=== PATIENT | female | born 1990 | race Caucasian/White ===

== ENCOUNTER 2018-10-23 16:07 | Emergency (ER) | payer OTHER ==
[~2018-10-23] VITALS: Ht 170.2 cm; Wt 98.4 kg
[~2018-10-23 16:07] MED LIST: NOHOMEMEDICATIONS; NORCO 5-325 TA1 EACH PO
[2018-10-23] MEDS ORDERED: GABAPENTIN 100100 MG PO (16:26)
[2018-10-23] MEDS ORDERED: MEDROLDOSEPACK PO (16:26)
[2018-10-23 17:24] LABS: ABSOLUTE NEUTROPHILS 9.3 thou/uL (1.4-8.2); BASOPHILS 0.4 % (0.0-2.0); EOSINOPHILS 0.8 % (0.0-3.0); HEMATOCRIT 45.3 % (37.0-47.0); HEMOGLOBIN 15.3 gm/dL (12.0-15.0); LYMPHOCYTES 19.5 % (24.0-44.0); MCH 28.1 pg (26.0-34.0); MCHC 33.8 g/dL (28.0-37.0); MCV 83.1 fL (80.0-100.0); MONOCYTES 5.6 % (1.0-8.0); PLATELET COUNT 360 thou/uL (150-400); POLYS 73.7 % (36.0-66.0); RBC 5.46 mil/uL (4.20-5.00); WBC 12.6 thou/uL (4.0-11.0)
[2018-10-23 17:32] LABS: CALCIUM 9.3 mg/dL (8.5-10.1); CREATININE 0.8 mg/dL (0.6-1.0)
[2018-10-23 17:36] LABS: ALBUMIN 3.7 g/dL (3.4-5.0); TOTAL BILIRUBIN 0.6 mg/dL (<0.1-1.0); TOTAL PROTEIN 8.1 g/dL (6.4-8.2)
[2018-10-23 17:52] LABS: URINE BILIRUBIN NEGATIVE (Negative); URINE BLOOD NEGATIVE (Negative); URINE CLARITY CLEAR; URINE COLOR YELLOW; URINE GLUCOSE-RANDOM* NEGATIVE (Negative); URINE KETONES NEGATIVE (Negative); URINE LEUKOCYTES-REFLEX TRACE (Negative); URINE NITRITE-REFLEX NEGATIVE (Negative); URINE PROTEIN (DIPSTICK) NEGATIVE (Negative); URINE SPECIFIC GRAVITY 1.025 (1.005-1.035); URINE UROBILINOGEN 0.2 E.U./dl (0.2-1.0)
[2018-10-23 18:58] VITALS: BP 130/82
[2018-10-23] MEDS ORDERED: ONDANSETRON HCL4 M2 PO (18:59)
== END 2018-10-23 19:01 | disposition home or self-care (01) ==
LOC: ER 16:07
PROVIDERS: Physician Assistant
DX: R11.2 Nausea with vomiting, unspecified (principal); R10.33 Periumbilical pain; R10.31 Right lower quadrant pain

== ENCOUNTER 2019-03-10 18:39 | Emergency (ER) | payer BC ==
[~2019-03-10] VITALS: Ht 170.2 cm; Wt 103.4 kg
[~2019-03-10 18:39] MED LIST changes: +GABAPENTIN 100100 MG PO; +MEDROLDOSEPACK PO; +ONDANSETRON HCL4 M2 PO
[2019-03-10 19:57] LABS: URINE BILIRUBIN NEGATIVE (Negative); URINE BLOOD NEGATIVE (Negative); URINE CLARITY CLEAR; URINE COLOR YELLOW; URINE GLUCOSE-RANDOM* NEGATIVE (Negative); URINE KETONES NEGATIVE (Negative); URINE LEUKOCYTES-REFLEX TRACE (Negative); URINE NITRITE-REFLEX NEGATIVE (Negative); URINE PROTEIN (DIPSTICK) NEGATIVE (Negative); URINE SPECIFIC GRAVITY <= 1.005 (1.005-1.035); URINE UROBILINOGEN 0.2 E.U./dl (0.2-1.0)
[2019-03-10 20:29] LABS: ABSOLUTE NEUTROPHILS 7.7 thou/uL (1.4-8.2); BASOPHILS 0.8 % (0.0-2.0); EOSINOPHILS 1.7 % (0.0-3.0); HEMATOCRIT 41.9 % (37.0-47.0); HEMOGLOBIN 14.3 gm/dL (12.0-15.0); LYMPHOCYTES 25.3 % (24.0-44.0); MCH 28.3 pg (26.0-34.0); MCHC 34.1 g/dL (28.0-37.0); MONOCYTES 9.2 % (1.0-8.0); PLATELET COUNT 337 thou/uL (150-400); RBC 5.04 mil/uL (4.20-5.00); RDW 12.9 % (10.5-14.5); WBC 12.2 thou/uL (4.0-11.0)
[2019-03-10 20:37] LABS: CALCIUM 9.4 mg/dL (8.5-10.1); CREATININE 0.8 mg/dL (0.6-1.0); POTASSIUM 3.4 mmol/L (3.5-5.1)
[2019-03-10 20:43] LABS: ALBUMIN 3.6 g/dL (3.4-5.0); TOTAL BILIRUBIN 0.2 mg/dL (<0.1-1.0); TOTAL PROTEIN 8.1 g/dL (6.4-8.2)
[2019-03-10] MEDS ORDERED: CARAFATE 1 GM TA1 G1 PO ×2 (21:02→21:14)
[2019-03-10] MEDS ORDERED: ZOFRAN ODT4 MG PO ×2 (21:02→21:14)
[2019-03-10] MEDS ORDERED: PROTONIX40 M1 PO ×2 (21:02→21:14)
[2019-03-10] MEDS ORDERED: ULTRAM 50MG TAB50 MG PO ×2 (21:02→21:14)
[2019-03-10 22:05] VITALS: BP 117/94
== END 2019-03-10 22:00 | disposition home or self-care (01) ==
LOC: ER 18:39
PROVIDERS: Emergency Medicine
DX: K29.70 Gastritis, unspecified, without bleeding (principal); K21.9 Gastro-esophageal reflux disease without esophagitis; I10 Essential (primary) hypertension

== ENCOUNTER 2019-09-05 18:02 | Emergency (ER) | payer BC ==
[~2019-09-05] VITALS: Ht 170.2 cm; Wt 102.1 kg
[~2019-09-05 18:02] MED LIST changes: +CARAFATE 1 GM TA1 G1 PO; +PROTONIX40 M1 PO; +ULTRAM 50MG TAB50 MG PO; +ZOFRAN ODT4 MG PO
[2019-09-05] MEDS ORDERED: NORCO 5-325 TA1 EAC1 PO (20:51)
[2019-09-05 21:07] VITALS: BP 112/62
== END 2019-09-05 21:07 | disposition home or self-care (01) ==
LOC: ER 18:02
DX: S32.2XXA Fracture of coccyx, initial encounter for closed fracture (principal); W00.2XXA Other fall from one level to another due to ice and snow, initial encounter; Y93.29 Activity, other involving ice and snow; Y92.89 Other specified places as the place of occurrence of the external cause; Y99.8 Other external cause status

== ENCOUNTER → 2019-09-11 | Outpatient (CLI) | payer BC ==
[~2019-09-11] MED LIST changes: +NORCO 5-325 TA1 EAC1 PO
== END ==
LOC: CAT 10:54
DX: S09.90XA Unspecified injury of head, initial encounter (principal); S13.4XXA Sprain of ligaments of cervical spine, initial encounter; J34.89 Other specified disorders of nose and nasal sinuses; X58.XXXA Exposure to other specified factors, initial encounter; Y93.89 Activity, other specified; Y92.89 Other specified places as the place of occurrence of the external cause; Y99.8 Other external cause status

== ENCOUNTER 2019-12-15 22:32 | Emergency (ER) | payer BC ==
[~2019-12-15] VITALS: Ht 170.2 cm; Wt 104.3 kg
[2019-12-15 23:39] VITALS: BP 142/82
== END 2019-12-15 23:50 | disposition home or self-care (01) ==
LOC: ER 22:32
DX: S20.111A Abrasion of breast, right breast, initial encounter (principal); R07.89 Other chest pain; M54.2 Cervicalgia; R51 Headache; R10.9 Unspecified abdominal pain; Z98.86 Personal history of breast implant removal; V89.2XXA Person injured in unspecified motor-vehicle accident, traffic, initial encounter; Y93.89 Activity, other specified; Y92.89 Other specified places as the place of occurrence of the external cause; Y99.8 Other external cause status

== ENCOUNTER 2020-03-25 21:06 | Emergency (ER) | payer BC ==
[~2020-03-25] VITALS: Ht 170.2 cm; Wt 107.5 kg
[2020-03-25] MEDS ORDERED: PROTONIX40 M2 PO (21:36)
[2020-03-25 21:42] LABS: ABSOLUTE NEUTROPHILS 3.8 thou/uL (1.4-8.2); EOSINOPHILS 4.8 % (0.0-3.0); HEMATOCRIT 39.4 % (37.0-47.0); HEMOGLOBIN 13.3 gm/dL (12.0-15.0); LYMPHOCYTES 39.6 % (24.0-44.0); MCH 28.6 pg (26.0-34.0); MCHC 33.7 g/dL (28.0-37.0); MCV 84.8 fL (80.0-100.0); MONOCYTES 8.8 % (1.0-8.0); PLATELET COUNT 270 thou/uL (150-400); POLYS 45.8 % (36.0-66.0); RBC 4.65 mil/uL (4.20-5.00); WBC 8.3 thou/uL (4.0-11.0)
[2020-03-25 21:50] LABS: ANION GAP 9 mmol/L (7-16); BUN 9 mg/dL (7-18); CALCIUM 8.1 mg/dL (8.5-10.1); CHLORIDE 104 mmol/L (98-107); CO2 28 mmol/L (21-32); CREATININE 0.8 mg/dL (0.6-1.0); GLUCOSE 95 mg/dL (74-106); POTASSIUM 3.6 mmol/L (3.5-5.1); SODIUM 141 mmol/L (136-145)
[2020-03-25 22:01] LABS: ALBUMIN 3.5 g/dL (3.4-5.0); LIPASE 198 U/L (73-393); SGOT 31 U/L (15-37); SGPT 46 U/L (30-65); TOTAL BILIRUBIN 0.3 mg/dL (0.2-1.0); TOTAL PROTEIN 7.4 g/dL (6.4-8.2); TROPONIN-I <0.06 ng/mL (<0.06)
[2020-03-25] MEDS ORDERED: BUTALB-APAP-CA1 EACH PO (22:42)
[2020-03-25 22:46] VITALS: BP 111/59
--- NOTE | 2020-03-26 09:16 | EKG ---
[facility] [place] [address] ELECTROCARDIOGRAM REPORT Name: DARÍO BATISTA Room #: DEP [facility]#: [id number] Admission: 03/25/20 Attend Phys: Discharge: 03/25/20 Date of : [birth year] Report #: [id number] THIS REPORT FOR: cc: Vanessa Zhang MD, Nora P. 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
== END 2020-03-25 22:47 | disposition home or self-care (01) ==
LOC: ER 21:06
PROVIDERS: Emergency Medicine
DX: G43.909 Migraine, unspecified, not intractable, without status migrainosus (principal); Z79.899 Other long term (current) drug therapy; Z98.890 Other specified postprocedural states

== ENCOUNTER → 2020-04-08 | Outpatient (CLI) | payer OTHER ==
[~2020-04-08] MED LIST changes: +BUTALB-APAP-CA1 EACH PO; +PROTONIX40 M2 PO
== END ==
LOC: MRI 10:22
PROVIDERS: ATTEND Family Medicine
DX: R51 Headache (principal)

== ENCOUNTER 2021-02-10 23:02 | Emergency (ER) | payer BC ==
[~2021-02-10] VITALS: Ht 170.2 cm; Wt 104.3 kg
[2021-02-11 00:42] LABS: ANION GAP 12 mmol/L (7-16); BUN 10 mg/dL (7-18); CALCIUM 8.5 mg/dL (8.5-10.1); CHLORIDE 101 mmol/L (98-107); CO2 24 mmol/L (21-32); CREATININE 0.7 mg/dL (0.6-1.0); GLUCOSE 106 mg/dL (74-106); POTASSIUM 4.4 mmol/L (3.5-5.1); SODIUM 137 mmol/L (136-145)
[2021-02-11 00:56] LABS: ALBUMIN 3.1 g/dL (3.4-5.0); SGOT 42 U/L (15-37); SGPT 29 U/L (30-65); TOTAL BILIRUBIN 0.4 mg/dL (0.2-1.0); TOTAL PROTEIN 7.8 g/dL (6.4-8.2); TROPONIN-I <0.06 ng/mL (<0.06)
[2021-02-11 01:00] LABS: ABSOLUTE NEUTROPHILS 5.8 thou/uL (1.4-8.2); BASOPHILS 0.6 % (0.0-2.0); EOSINOPHILS 3.8 % (0.0-3.0); LYMPHOCYTES 30.3 % (24.0-44.0); MCH 28.7 pg (26.0-34.0); MCHC 34.3 g/dL (28.0-37.0); MCV 83.9 fL (80.0-100.0); MONOCYTES 8.8 % (1.0-8.0); PLATELET COUNT 315 thou/uL (150-400); POLYS 56.5 % (36.0-66.0); RBC 4.53 mil/uL (4.20-5.00); RDW 13.2 % (10.5-14.5); WBC 10.3 thou/uL (4.0-11.0)
[2021-02-11 04:19] VITALS: BP 130/71
--- NOTE | 2021-02-11 07:20 | EKG ---
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 : 1990 Requested By: Socrates Edwards Order Number: [id number] MD: Jori Grace Measurements Intervals [place] Rate: 72 P: 41 ME: 135 QRS: 67 QRSD: 83 T: 48 QT: 364 QTc: 399 Interpretive Statements Sinus rhythm Probable left atrial enlargement Baseline wander in lead(s) V6 Compared to ECG 03/25/2020 21:13:53 No significant changes Electronically Signed On 02-11-2021 7:20:33 CDT by Jori Grace [email or web address] <ELECTRONICALLY SIGNED> By: Jori Grace MD, [facility] 02/11/21 0720 7 06 Jori Grace MD, FACC /EPI
== END 2021-02-11 04:23 | disposition home or self-care (01) ==
LOC: ER 23:02
PROVIDERS: Emergency Medicine
DX: R07.89 Other chest pain (principal); E78.5 Hyperlipidemia, unspecified; Z98.890 Other specified postprocedural states

== ENCOUNTER → 2021-05-12 | Outpatient (CLI) | payer BC ==
[~2021-05-12] MED LIST changes: +EUTHYROX50 MCG PO
--- NOTE | 2021-05-12 10:43 | NUR ---
PT ARRIVED AT 9AM AND PREPPED FOR ESOPHAGEAL MANOMETRY. AFTER CONSENT OBTAINED, LIDOCAINE JELLY APPLIED TO RIGHT NARE AND HURRICAINE SPRAY X 1 TO THROAT. PT STATES HAS SLIDING HIATAL HERNIA, CHEST PAIN, GERD, DYSPHAGIA. ATTEMPTED TO TRAVERSE CATHETER X 2 DOWN RIGHT NARE; PT STARTED GAGGING AND VOMITING MID PLACEMENT EACH TIME, CATHETER WAS INSERTED FULLY EACH TIME BUT GAGGING AND VOMITING CONTINUED EVEN WHEN TRYING TO ADJUST CATHETER; PROCEDURE NOT SUSSTAINABLE FOR PT. PT DECIDED TO ABORT. INFORMED HER WE WILL ALERT DR SOLIS OFFICE. DR SOLIS OFFICE NOTIFIED PT UNABLE TO TOLERATE PROCEDURE.
== END | disposition home or self-care (01) ==
LOC: GI 05-10 14:19
PROVIDERS: ATTEND Internal Medicine Gastroenterology
DX: K21.9 Gastro-esophageal reflux disease without esophagitis (principal); Z53.8 Procedure and treatment not carried out for other reasons; R13.10 Dysphagia, unspecified; R07.9 Chest pain, unspecified; R11.2 Nausea with vomiting, unspecified

== ENCOUNTER 2021-05-20 14:09 | Emergency (ER) | payer BC ==
[~2021-05-20] VITALS: Ht 167.6 cm; Wt 100.7 kg
[2021-05-20 14:44] LABS: URINE BILIRUBIN NEGATIVE (Negative); URINE BLOOD TRACE (Negative); URINE CLARITY CLEAR; URINE COLOR YELLOW; URINE GLUCOSE-RANDOM* NEGATIVE (Negative); URINE KETONES NEGATIVE (Negative); URINE LEUKOCYTES-REFLEX NEGATIVE (Negative); URINE NITRITE-REFLEX NEGATIVE (Negative); URINE PROTEIN (DIPSTICK) NEGATIVE (Negative); URINE SPECIFIC GRAVITY >= 1.030 (1.005-1.035); URINE UROBILINOGEN 0.2 E.U./dl (0.2-1.0)
[2021-05-20 14:55] LABS: ABSOLUTE NEUTROPHILS 9.1 thou/uL (1.4-8.2); BASOPHILS 0.6 % (0.0-2.0); EOSINOPHILS 0.1 % (0.0-3.0); HEMATOCRIT 40.2 % (37.0-47.0); HEMOGLOBIN 13.4 gm/dL (12.0-15.0); LYMPHOCYTES 18.1 % (24.0-44.0); MCH 28.1 pg (26.0-34.0); MCHC 33.3 g/dL (28.0-37.0); MCV 84.3 fL (80.0-100.0); MONOCYTES 5.7 % (1.0-8.0); PLATELET COUNT 324 thou/uL (150-400); POLYS 75.5 % (36.0-66.0); RBC 4.76 mil/uL (4.20-5.00); RDW 13.1 % (10.5-14.5); WBC 12.1 thou/uL (4.0-11.0)
[2021-05-20 15:06] LABS: ANION GAP 9 mmol/L (7-16); BUN 13 mg/dL (7-18); CALCIUM 8.7 mg/dL (8.5-10.1); CHLORIDE 103 mmol/L (98-107); CO2 28 mmol/L (21-32); CREATININE 0.8 mg/dL (0.6-1.0); GLUCOSE 96 mg/dL (74-106); POTASSIUM 3.6 mmol/L (3.5-5.1); SODIUM 140 mmol/L (136-145)
[2021-05-20 15:15] LABS: ALBUMIN 3.6 g/dL (3.4-5.0); SGOT 14 U/L (15-37); SGPT 27 U/L (14-59); TOTAL BILIRUBIN 0.4 mg/dL (0.2-1.0); TOTAL PROTEIN 7.9 g/dL (6.4-8.2)
[2021-05-20 17:04] VITALS: BP 134/63
--- NOTE | 2021-05-21 12:58 | EKG ---
[place] [address] 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
== END 2021-05-20 17:20 | disposition home or self-care (01) ==
LOC: ER 14:09
PROVIDERS: Nurse Practitioner Family
DX: R07.89 Other chest pain (principal); R00.1 Bradycardia, unspecified; Z79.899 Other long term (current) drug therapy

== ENCOUNTER 2021-05-24 16:42 | Emergency (ER) | payer BC ==
[~2021-05-24] VITALS: Ht 167.6 cm; Wt 99.8 kg
[2021-05-24 18:35] LABS: BASOPHILS 0.5 % (0.0-2.0); EOSINOPHILS 0.8 % (0.0-3.0); HEMATOCRIT 40.3 % (37.0-47.0); HEMOGLOBIN 13.5 gm/dL (12.0-15.0); LYMPHOCYTES 17.7 % (24.0-44.0); MCH 28.5 pg (26.0-34.0); MCHC 33.5 g/dL (28.0-37.0); MCV 84.9 fL (80.0-100.0); MONOCYTES 7.3 % (1.0-8.0); PLATELET COUNT 331 thou/uL (150-400); POLYS 73.7 % (36.0-66.0); RBC 4.75 mil/uL (4.20-5.00); WBC 10.9 thou/uL (4.0-11.0)
[2021-05-24 18:43] LABS: ANION GAP 5 mmol/L (7-16); BUN 11 mg/dL (7-18); CALCIUM 8.2 mg/dL (8.5-10.1); CHLORIDE 102 mmol/L (98-107); CO2 28 mmol/L (21-32); CREATININE 0.9 mg/dL (0.6-1.0); GLUCOSE 108 mg/dL (74-106); POTASSIUM 3.7 mmol/L (3.5-5.1); SODIUM 135 mmol/L (136-145)
[2021-05-24 18:54] LABS: ALBUMIN 3.2 g/dL (3.4-5.0); LIPASE 217 U/L (73-393); SGOT 21 U/L (15-37); SGPT 28 U/L (14-59); TOTAL BILIRUBIN 0.4 mg/dL (0.2-1.0); TOTAL PROTEIN 7.3 g/dL (6.4-8.2)
[2021-05-24] MEDS ORDERED: MOBIC7.5 MG PO (19:12)
[2021-05-24 19:15] VITALS: BP 115/75
--- NOTE | 2021-05-25 07:00 | EKG ---
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
== END 2021-05-24 19:15 | disposition home or self-care (01) ==
LOC: ER 16:42
PROVIDERS: Nurse Practitioner
DX: R07.89 Other chest pain (principal); Z79.899 Other long term (current) drug therapy

== ENCOUNTER → 2021-05-25 | Outpatient (CLI) | payer BC ==
[~2021-05-25] MED LIST changes: +MOBIC7.5 MG PO
== END ==
LOC: SJCVCIMAG 11:26
PROVIDERS: ATTEND Internal Medicine
DX: R00.1 Bradycardia, unspecified (principal); R07.89 Other chest pain